=== PATIENT | female | born 1965 | race Two or more races ===

== ENCOUNTER 2019-10-04 13:23 | Emergency (ER) | payer SELFPAY ==
[~2019-10-04] VITALS: Ht 165.1 cm; Wt 86.3 kg
[2019-10-04 13:53] VITALS: BP 113/69
[2019-10-04] MEDS ORDERED: ORPH100T PO (14:01)
[2019-10-04] MEDS ORDERED: HYDR-3164 PO (14:01)
[2019-10-04] MEDS ORDERED: METH4TAB2 PO (14:01)
--- NOTE | 2019-10-04 14:02 | PHYS DOC ---
General Adult EDM: Chief Complaint: WRIST PAIN HPI: HPI: Patient is a 54 year old female who presents with at work she was lifting a plastic height heavy arizmendi and now her right wrist is hurting only with movement. She states that it is slightly swollen also. She states it is sharp pain when she moves it. Patient states she is also got right-sided low back pain that has a sharp shooting pain down the back of her leg. This is all been going on for the last couple of days. She states she already takes ibuprofen at home but not regularly. She states that her pain is a 4 out of 10. Review of Systems: Review of Systems: Musculoskeletal: Right low back pain with radiation down right leg or right wrist joint pain. [] Heart Score: Risk Factors: Risk Factors: DM, Current or recent (<one month) smoker, HTN, HLP, family history of CAD, obesity. Risk Scores: Score 0 - 3: 2.5% MACE over next 6 weeks - Discharge Home Score 4 - 6: 20.3% MACE over next 6 weeks - Admit for Clinical Observation Score 7 - 10: 72.7% MACE over next 6 weeks - Early Invasive Strategies Physical Exam: PE: Constitutional: Well developed, well nourished, no acute distress, non-toxic appearance. [] HENT: Normocephalic, atraumatic, bilateral external ears normal, oropharynx moist, no oral exudates, nose normal. [] Eyes: PERRLA, EOMI, conjunctiva normal, no discharge. [] Neck: Normal range of motion, no tenderness, supple, no stridor. [] Cardiovascular:Heart rate regular rhythm, no murmur [] Lungs & Thorax: Bilateral breath sounds clear to auscultation [] Abdomen: Bowel sounds normal, soft, no tenderness, no masses, no pulsatile masses. [] Skin: Warm, dry, no erythema, no rash. [] Back: No tenderness, no CVA tenderness. [] Extremities: No tenderness, no cyanosis, no clubbing, right wrist ROM intact, right wrist 1+ edema. [] Neurologic: Alert and oriented X 3, normal motor function, normal sensory function, no focal deficits noted. [] Psychologic: Affect normal, judgement normal, mood normal. [] EKG: EKG: [] Radiology/Procedures: Radiology/Procedures: [] Impression: [facility] [address] [place] [address] IMAGING REPORT Signed PATIENT: KENA JACOBUNT: [id number] : 1965 LOCATION: ER AGE: 54 SEX: F EXAM STATUS: REG ER ORD. PHYSICIAN: LUIS JESSICA APRN REASON: pain with movement PROCEDURE: WRIST 3V RIGHT Examination: WRIST 3V RIGHT History: Pain Comparison/Correlation: None Findings: Three-view exam of the right wrist was performed. Joint spaces are mostly unremarkable. There is narrowing of the lateral radiocarpal joint. Bony density which may represent accessory ossicles present about the radial styloid. No acute fracture or bone destruction. Impression: No acute process. Electronically signed by: Nina Toscano MD (10/04/2019 2:21 PM) [id number] DICTATED and SIGNED BY: NINA TOSCANO MD DATE: 10/04/191420 Course & Med Decision Making: Course & Med Decision Making Pertinent Labs and Imaging studies reviewed. (See chart for details) Patient is on her feet and works very long hours. She alert and oriented. She states she does a lot of heavy lifting. Ambulatory with steady gait. Denies any numbness or tingling, chest pain, dizziness, loss of bowel or bladder, saddle paresthesia, abdominal pain, nausea, vomiting fever, dysuria, headache. Patient states the pain is worse in her back when she goes from sitting to standing or standing to sitting. Patient is able to sit in the chair and stand up without difficulty in the ED. Patient would not move her wrist for me to show me range of motion and when I tried to move her wrist she was stiffening it up. Patient states it hurts too bad to move it. As I was watching the patient as she was talking on the educational interpreter phone and taking off her jacket she did move her wrist sign of that she can move it. There is no laxity in the wrist joint. There is 1+ swelling. No tenderness to palpation. No tenderness to palpation in her spine or her back. Radial pulse strong and present. Skin pink warm and dry. Cap refill less than 3 seconds. Patient is placed in a wrist splint. [] Dragon Disclaimer: Dragon Disclaimer: This electronic medical record was generated, in whole or in part, using a voice recognition dictation system. Departure Departure Impression: Primary Impression: Right wrist sprain Qualified Codes: S63.501A - Unspecified sprain of right wrist, initial encounter Additional Impression: Low back pain with sciatica Qualified Codes: M54.41 - Lumbago with sciatica, right side Disposition: HOME, SELF-CARE Condition: STABLE Referrals: NO PCP (PCP) Patient Instructions: Back Exercises, Tarb-bw-Meet, Sciatica with [facility], Wrist Sprain with [facility] Additional Instructions: Follow up with your primary care provider or orthopedic doctor. Take medication with food and as prescribed. This medication may make you sleepy. Do not work on the medication or operate heavy machinery. Scripts Orphenadrine Citrate (ORPHENADRINE CITRATE) 100 Mg Tablet.er 1 TAB PO BID, #14 TAB Prov: LUIS JESSICA CHILD CARE ASSOCIATE 10/04/19 Hydrocodone/Apap 5-325 (NORCO 5-325 TABLET) 1 Each Tablet 1 TAB PO PRN Q6HRS PRN for PAIN, #8 TAB 0 Refills Prov: LUIS JESSICA CHILD CARE ASSOCIATE 10/04/19 Methylprednisolone (MEDROL) 4 Mg Tab.ds.pk 1 PKG PO UD, #1 PKG Prov: LUIS JESSICA CHILD CARE ASSOCIATE 10/04/19 LUIS JESSICA CHILD CARE ASSOCIATE Oct 04, 2019 14:02
--- NOTE | 2019-10-04 14:24 | RAD ---
Examination: WRIST 3V RIGHT History: Pain Comparison/Correlation: None Findings: Three-view exam of the right wrist was performed. Joint spaces are mostly unremarkable. There is narrowing of the lateral radiocarpal joint. Bony density which may represent accessory ossicles present about the radial styloid. No acute fracture or bone destruction. Impression: No acute process. Electronically signed by: Andriy Wallace MD (10/04/2019 2:21 PM) [id number]
== END 2019-10-04 14:35 | disposition home or self-care (01) ==
LOC: ER 13:23
DX: S63.591A Other specified sprain of right wrist, initial encounter (principal); M54.41 Lumbago with sciatica, right side; R60.0 Localized edema; X50.0XXA Overexertion from strenuous movement or load, initial encounter; Y93.89 Activity, other specified; Y92.89 Other specified places as the place of occurrence of the external cause; Y99.8 Other external cause status
CPT/HCPCS: 29125; 73110; 99283